=== PATIENT | male | born 1970 | race Caucasian/White ===

== ENCOUNTER 2025-01-19 00:19 | Emergency (ER) | payer MEDICAID ==
[~2025-01-19] VITALS: Ht 167.6 cm; Wt 50.0 kg
--- NOTE | 2025-01-19 00:59 | ELECTROCARDIOGRAPH REPORT ---
[facility] Test Date: 2025-01-19 Test Time: 00:56:24 Pat Name: DUDLEY BYRNES Department: [facility]- Patient ID: [facility]-[id number] Room: Gender: M Intrusion Analyst: : 1970 Requested By: CICI COLEMAN Order Number: [id number] Reading MD: Measurements Intervals [place] Rate: 96 P: 77 ID: [id number] QRS: 104 QRSD: 69 T: 48 QT: 350 QTc: 443 Interpretive Statements Sinus rhythm Lateral infarct, old Anteroseptal infarct, old Please click the below link to view image of tracing.
--- NOTE | 2025-01-19 01:22 | RADIOLOGY REPORT ---
CHEST RADIOGRAPH Indication: aloc Technique: Single frontal view of the chest was obtained COMPARISON: None FINDINGS: Lines and Tubes: None Lungs: Clear Pleura: No effusion. No pneumothorax. Cardiomediastinal contours: Unremarkable Bones: Unremarkable. Old healed left posterior 7th rib fracture. IMPRESSION: 1. No acute disease.
[2025-01-19 01:26] LABS: BASOPHILS # (AUTO) 0.1 X10'3 (0-0.2); BASOPHILS % (AUTO) 0.7 % (0-1); EOSINOPHILS # (AUTO) 0.1 X10'3 (0-0.9); EOSINOPHILS % (AUTO) 1.1 % (0-6); HEMATOCRIT 31.9 % (42.0-52.0); HEMOGLOBIN 11.1 g/dl (14.0-17.9); LYMPHOCYTES # (AUTO) 2.5 X10'3 (1.1-4.8); LYMPHOCYTES % (AUTO) 33.4 % (21-51); MEAN CORPUSCULAR HEMOGLOBIN 35.3 PG (27.0-31.0); MEAN CORPUSCULAR HGB CONC 34.9 g/dL (33.0-36.5); MEAN CORPUSCULAR VOLUME 101.3 FL (78-98); MEAN PLATELET VOLUME 5.8 FL (7.4-10.4); MONOCYTES # (AUTO) 0.8 X10'3 (0-0.9); MONOCYTES % (AUTO) 11.1 % (2-12); NEUTROPHILS % (AUTO) 53.7 % (42-75); PLATELET COUNT 284 X10'3 (140-440); RED BLOOD COUNT 3.14 X10'6 (4.70-6.10); WHITE BLOOD COUNT 7.4 X10'3 (4.5-11.0)
[2025-01-19 01:42] LABS: ALBUMIN 2.8 G/DL (3.4-5.0); ANION GAP 11 (8-16); BLOOD UREA NITROGEN 4 MG/DL (7-18); BUN/CREATININE RATIO 6.6 (10.0-20.0); CALCIUM 8.3 MG/DL (8.5-10.1); CHLORIDE 102 MMOL/L (99-107); CREATININE 0.61 MG/DL (0.60-1.10); ETHANOL 283 MG/DL (<10); GLUCOSE 106 MG/DL (70-104); POTASSIUM 3.2 MMOL/L (3.5-5.1); SODIUM 139 MMOL/L (135-145); eCRCL 100 ML/MIN; eGFR > 90 ML/MIN
--- NOTE | 2025-01-19 02:41 | RADIOLOGY REPORT ---
EXAM: CT CT T L SPINE HISTORY: Fall, midline back pain COMPARISON: None CTDIvol 10.0 mGy, DLP 633.71 mGy*cm. TECHNIQUE: Multiple axial CT images of the spine were obtained using bone algorithm. Axial and coron al reformatting was done. Bone and soft tissue windows were reviewed. FINDINGS: Chronic appearing anterior wedging deformity of the T12 vertebral body has resulted in less than 25% anterior height loss. No CT evidence of definite acute fracture, spinal dislocation, or significant appearing acute subluxa tion is seen. The visualized paraspinal soft tissues are grossly unremarkable. Mild to moderate multilevel degenerative change of the thoracolumbar spine includes anterior osteophy tosis and multilevel bilateral facet hypertrophy. Atherosclerotic vascular calcifications. Moderate right apical pleural parenchymal scarring and liberty eptal emphysematous change. Right posterior basilar atelectasis. IMPRESSION: 1. No definite CT evidence of acute fracture or dislocation of the bony thoracolumbar spine. 2. Chronic appearing anterior wedging deformity of the T12 vertebral body resulting in less than 25% anterior height loss. 3. Panp-wd-ydhctrsw multilevel degenerative change of the thoracolumbar spine. 4. Moderate right apical pleural parenchymal scarring and paraseptal emphysematous change and right p osterior basilar atelectasis. 5. Atherosclerotic vascular disease.
--- NOTE | 2025-01-19 02:45 | RADIOLOGY REPORT ---
EXAM: CT CT HEAD INDICATION: GLF with head strike, LOC TECHNIQUE: CT of the head without intravenous contrast. Radiation Dose : 1. Head: CT Dose: CTDI volume is 53.96 mGy. Dose-length product is 1045.35 mGy*cm The dose indicators for CT are the volume Computed Tomography (CT) Dose Index (CTDIvol) and the Dose Length Product (DLP), and are measured in units of mGy and mGy-cm, respectively. These indicators are not patient dose, but values generated from the CT scanner acquisition factors. The report includes radiation exposure data for exposures received during this examination. COMPARISON: None FINDINGS: There is no evidence of acute intracranial hemorrhage, extra-axial collection, mass effect, midline s hift, herniation or hydrocephalus. Focal central pontine encephalomalacia consistent with remote insu lt. Increased prominence of the ventricles, sulci and cisterns is consistent with the sequelae of atrophi c cortical volume loss. The moreno-white differentiation is intact. Moderate diffuse confluent periventricular and subcortical white matter hypoattenuation is nonspecifi c but may be related to small vessel ischemic disease. The visualized paranasal sinuses and mastoid air cells are clear. The surrounding soft tissues and osseous structures are unremarkable. IMPRESSION: 1. No acute intracranial abnormality. 2. Chronic sequelae of microvascular disease, atrophic cortical volume loss and remote central pontin e insult. Radiation optimization: All CT scans at this facility use at least one of these dose optimization enmanuel hniques: automated exposure control mA and/or kV adjustment per patient size (includes targeted exam s where dose is matched to clinical indication) or iterative reconstruction.
--- NOTE | 2025-01-19 02:48 | RADIOLOGY REPORT ---
EXAM: CT CT CERVICAL SPINE HISTORY: NECK PAIN COMPARISON: None CTDIvol 17.91 mGy, DLP 388.84 mGy*cm. TECHNIQUE: Multiple axial CT images of the spine were obtained using bone algorithm. Axial and coron al reformatting was done. Bone and soft tissue windows were reviewed. FINDINGS: No CT evidence of definite acute fracture, spinal dislocation, or significant appearing acute subluxa tion is seen. The visualized paraspinal soft tissues are grossly unremarkable. Moderate right apical pleural parenchymal scarring and paraseptal emphysematous change. IMPRESSION: 1. No definite CT evidence of acute fracture or dislocation of the bony cervical spine. 2. Moderate right apical pleural parenchymal scarring and paraseptal emphysematous change.
[2025-01-19 03:56] LABS: BILIRUBIN,URINE NEGATIVE (Neg); CLARITY,URINE CLEAR (Clear); COLOR,URINE YELLOW (Yellow); GLUCOSE, URINE NEGATIVE (Neg); KETONES,URINE NEGATIVE (Neg); LEUKOCYTE ESTERASE ,URINE NEGATIVE (Neg); NITRITES, URINE NEGATIVE (Neg); OCCULT BLOOD,URINE NEGATIVE (Neg); PH,URINE 5.5 (4.8-8.0); PROTEIN,URINE NEGATIVE (Neg); UROBILINOGEN,URINE 0.2 E.U/dL (0.2-1.0)
[2025-01-19 03:58] LABS: UA COLLECTION TYPE NON-SPECIFIED
--- NOTE | 2025-01-19 04:21 | Physician Documentation ---
History of Present Illness ~ Chief Complaint: Mechanical Fall Stated Complaint: FALL Time Seen by MD: 01:28 Mode of Arrival: EMS HPI 54-year-old male, history of chronic alcohol abuse, who presents with a fall The patient reports that he was in the shower, when he slipped and fell, landing on his back. He reports pain in his head, neck, and down his spine including the upper and lower back. Unknown loss of consciousness. He does report tingling in his fingertips and toes, but states this has been pre sent for 6 months. He denies any new numbness or weakness to his extremities. He does report needing to use a walker to ambulate. No other pain or injuries. Tetanus within 5 Years?: No Medication Reconciliation Allergies: Coded Allergies: morphine (Verified Allergy, Mild, Shakey, 01/19/25) oxycodone (Verified Allergy, Mild, Shakey, and dizzy, 01/19/25) Review of Systems Constitutional: Denies: fever Gastrointestinal: Denies: abdominal pain, nausea Neurological: Reports: headache Musculoskeletal: Reports: pain, back pain Physical Exam Vital Signs: Temperature: 98.1, Source: Oral, Heart Rate: 99, Respiratory Rate: 16, BP: 111/75, Pulse Oximetry: 99, Weight: 50.000 Physical Exam General: This is a thin middle-aged man lying in bed, with a C-collar on, alert HEENT: Tenderness to the posterior scalp, oropharynx is dry Neck: Midline tenderness diffusely as well as tenderness on palpation of the paraspinal muscles Heart: Mild tachycardic, appears regular Lungs: Clear breath sounds bilateral, normal work of breathing, normal oxygen saturation on room air Abdomen: Soft, nondistended, nontender all quadrants Extremities: Warm and well-perfused. No traumatic findings Neuro: Alert and oriented, diminished sensation to light touch in the fingertips bilateral, and feet and a stocking-glove distribution bilateral. Grossly normal strength in all 4 extremities. Psychiatric: Slurred speech, appears mildly intoxicated Progress Results/Orders Results/Orders Orders - CICI COLEMAN MD Electrocardiogram (01/19/25 00:50) Accucheck (01/19/25 00:50) Chest,Single View (01/19/25 00:50) Monitor (01/19/25 00:50) Saline Lock (01/19/25 00:50) Ct Head (01/19/25 01:15) Ct Cervical Spine (01/19/25 01:15) Ct T&L Spine (01/19/25 01:15) Completed Orders - CICI COLEMAN MD Electrocardiogram (01/19/25 00:50) Cbc/Diff (01/19/25 00:50) Urinalysis, Cult If Indicated (01/19/25 00:50) Chest,Single View (01/19/25 00:50) Ethanol (01/19/25 00:50) BMP (01/19/25 00:50) Ct Head (01/19/25 01:15) Ct Cervical Spine (01/19/25 01:15) Ct T&L Spine (01/19/25 01:15) Vital Signs 01/19/25 01/19/25 01/19/25 01/19/25 00:31 00:44 00:44 05:14 Temp 98.1 98.1 Pulse 104 99 80 Resp 18 16 18 16 B/P (MAP) 106/70 111/75 (87) 130/80 Pulse Ox 99 99 99 Laboratory Tests Test 01/19/25 01:13 01/19/25 03:39 White Blood Count 7.4 Red Blood Count 3.14 L Hemoglobin 11.1 L Hematocrit 31.9 L Mean Corpuscular Volume 101.3 H Mean Corpuscular Hemoglobin 35.3 H Mean Corpuscular Hemoglobin Concent 34.9 Red Cell Distribution Width 14.0 Platelet Count 284 Mean Platelet Volume 5.8 L Neutrophils (%) (Auto) 53.7 Lymphocytes (%) (Auto) 33.4 Monocytes (%) (Auto) 11.1 Eosinophils (%) (Auto) 1.1 Basophils (%) (Auto) 0.7 Neutrophils # (Auto) 4.0 Lymphocytes # (Auto) 2.5 Monocytes # (Auto) 0.8 Eosinophils # (Auto) 0.1 Basophils # (Auto) 0.1 CBC Comment Sodium Level 139 Potassium Level 3.2 L Chloride Level 102 Carbon Dioxide Level 26.0 Anion Gap 11 Blood Urea Nitrogen 4 L Creatinine 0.61 Estimated GFR/1.73 m2 > 90 BUN/Creatinine Ratio 6.6 L Glucose Level 106 H Calcium Level 8.3 L Albumin 2.8 L Chemistry Comments Ethyl Alcohol Level 283 H Urine Specimen Description Non-specified Urine Color Yellow Urine Clarity Clear Urine pH 5.5 Urine Specific [place] <=1.005 Urine Protein Negative Urine Glucose (UA) Negative Urine Ketones Negative Urine Occult Blood Negative Urine Nitrite Negative Urine Bilirubin Negative Urine Urobilinogen 0.2 Urine Leukocyte Esterase Negative Urine Culture Indicated Not ind Volume Urine Centrifuged 10 ml Urine Comment EKG/XRAY/CT/US/VASC/MRI Chest X-Ray : Additional Comments I personally reviewed the x-ray, and it shows: No acute process, no consolidation, pulmonary edema, or mediastinal widening CT : Impression I personally reviewed the CT scans- there was no acute hemorrhage or fracture in the head CT, no fracture to the cervical spine, possible nonacute T12 compression fracture, otherwise no spinal fracture Medical Decision Making Differential Dx:Considerations: Include: Closed head injury, Fracture(s), Pneumothorax, Cerebral contusion, Spine injury, Abrasion(s), Contusion(s), Hematoma(s) Assessment The patient presents with a fall, with head, neck and back pain. His workup is unrevealing, no dangerous findings. This includes no head or neck injury and no spinal fractures from the fall. He does have a remote appearing T12 compression fracture. He does have some chronic paresthesias to his fingers and toes, but this does not seem related to his fall. I doubt spinal cord injury today. He was observed here in the emergency department after which time he did sober and could safely ambulate at his baseline. He will be discharged home with symptomatic treatment. Departure Time of Disposition: 04:47 Impression: Primary Impression: Fall Additional Impressions: Cervical sprain Back contusion Alcoholic intoxication Condition: Improved Discharge Instructions: Alcohol Intoxication, Cervical Sprain Referrals: NO PRIMARY CARE PROVIDER (PCP) Education Educated: Patient Educated regarding: diagnosis, treatment, need for follow up Signature Scribe Signature: na Attestation: CICI Ziegler MD Jan 19, 2025 04:21
[2025-01-19 05:14] VITALS: BP 130/80; PULSE 80; RESP 16; TEMP 98.1; O2SAT 99
== END 2025-01-19 05:42 | disposition home or self-care (01) ==
LOC: ER 00:20
DX: S13.4XXA Sprain of ligaments of cervical spine, initial encounter (principal); S20.229A Contusion of unspecified back wall of thorax, initial encounter; F10.129 Alcohol abuse with intoxication, unspecified; Y90.9 Presence of alcohol in blood, level not specified; Z88.5 Allergy status to narcotic agent; W18.2XXA Fall in (into) shower or empty bathtub, initial encounter; Y93.E1 Activity, personal bathing and showering; Y92.89 Other specified places as the place of occurrence of the external cause; Y99.8 Other external cause status
CPT/HCPCS: 36415; 70450; 71045; 72125; 72128; 72131; 80048; 80320; 81003; 85025; 93005; 99285